=== PATIENT | male | born 2000 | race African-American/Black ===

== ENCOUNTER 2024-04-10 02:49 | Emergency (ER) | payer OTHER ==
[~2024-04-10] VITALS: Ht 180.3 cm; Wt 63.5 kg
[2024-04-10] MEDS ORDERED: LEVO500T90 PO (04:15)
[2024-04-10 04:25] VITALS: BP 120/72; TEMP 98; O2SAT 100
== END 2024-04-10 04:26 | disposition home or self-care (01) ==
LOC: ER 02:59
DX: J01.90 Acute sinusitis, unspecified (principal); B96.89 Other specified bacterial agents as the cause of diseases classified elsewhere; R03.0 Elevated blood-pressure reading, without diagnosis of hypertension; R05.9 Cough, unspecified; R06.02 Shortness of breath; Z79.899 Other long term (current) drug therapy; Z88.8 Allergy status to other drugs, medicaments and biological substances
CPT/HCPCS: 71045; A4606; A4663